=== PATIENT | male | born 1965 | race African-American/Black ===

== ENCOUNTER 2024-08-31 07:50 | Emergency (ER) | payer OTHER, MEDICAID ==
[~2024-08-31] VITALS: Ht 182.9 cm; Wt 95.0 kg
[2024-08-31 07:52] VITALS: O2SAT 97
[2024-08-31 09:25] LABS: BASOPHILS % 0.7 % (0.0-2.0); EOSINOPHILS % 1.1 % (0.0-5.0); HEMOGLOBIN. 15.7 g/dL (14.0-18.0); LYMPHOCYTES % 27.1 % (20.0-50.0); MEAN CORPUSCULAR HEMOGLOBIN 30.5 pg (28.0-32.0); MEAN CORPUSCULAR HGB CONC 32.7 g/dL (31.0-37.0); MEAN CORPUSCULAR VOLUME 93.4 fL (80.0-94.0); MEAN PLATELET VOLUME 7.8 fl (7.4-10.4); MONOCYTES % 9.2 % (2.0-8.0); NEUTROPHILS % 61.9 % (40.0-76.0); PLATELET 258 x1000/uL (130-400); RED BLOOD CELL COUNT 5.14 mill/uL (4.7-6.1); RED CELL DISTRIBUTION WIDTH 15.3 % (11.6-14.6); WHITE BLOOD COUNT 6.4 x1000/uL (4.5-11.0)
[2024-08-31 09:39] LABS: CHLORIDE 109 mEq/L (98-107); POTASSIUM 4.2 mEq/L (3.5-5.1); SODIUM 139 mEq/L (136-145)
[2024-08-31 09:40] LABS: CALCIUM 9.5 mg/dL (8.7-10.4); CARBON DIOXIDE 23 mEq/L (21-32)
[2024-08-31 09:45] LABS: GLUCOSE 102 mg/dL (70-105); UREA NITROGEN BLOOD 9 mg/dL (9-23)
[2024-08-31 09:47] LABS: ALANINE AMINOTRANSFERASE 16 IU/L (10-49); ALBUMIN 4.5 g/dL (3.2-4.8); ASPARTATE AMINOTRANSFERASE 22 IU/L (<34); BILIRUBIN DIRECT 0.2 mg/dL (<=3.0); PROTEIN TOTAL 7.9 g/dL (6.0-8.3)
[2024-08-31 09:48] LABS: PROTHROMBIN TIME 10.7 sec (9.6-11.0)
[2024-08-31 13:14] LABS: CLARITY URINE CLEAR (CLEAR); COLOR URINE YELLOW (YELLOW); GLUCOSE URINE NEGATIVE (NEGATIVE); KETONES URINE NEGATIVE (NEGATIVE); LEUKOCYTE ESTERASE URINE NEGATIVE (NEGATIVE); NITRITE URINE NEGATIVE (NEGATIVE); OCCULT BLOOD URINE NEGATIVE (NEGATIVE); PH URINE 6.5 (4.5-8.0); PROTEIN URINE NEGATIVE (NEGATIVE); SPECIFIC GRAVITY URINE 1.068 (1.005-1.030)
[2024-08-31 13:57] VITALS: BP 158/73; PULSE 59; RESP 16; TEMP 36.9; O2SAT 97
[2024-08-31] MEDS ORDERED: IOHEXOL-350 100 ML BOTTLE ONE (14:23)
== END 2024-08-31 13:58 | disposition home or self-care (01) ==
LOC: ER 08:01
DX: R10.32 Left lower quadrant pain (principal); J45.909 Unspecified asthma, uncomplicated; K40.90 Unilateral inguinal hernia, without obstruction or gangrene, not specified as recurrent
CPT/HCPCS: 80076; 80048; 81003; 83690; 85025; 85610; 36415; 74174; 71275; 74176; 99285; Q9967; Z7610 ×2; A4606

== ENCOUNTER 2025-01-25 09:16 | Emergency (ER) | payer MEDICAID, OTHER ==
[~2025-01-25] VITALS: Ht 182.9 cm; Wt 98.0 kg
[2025-01-25 09:26] VITALS: O2SAT 93
[2025-01-25] MEDS: IBUPROFEN 600MG TABLET PO ONE (10:11)
[2025-01-25] MEDS ORDERED: LIDO-53 TP (10:48)
[2025-01-25] MEDS ORDERED: IBUP-2030 MT (10:48)
[2025-01-25 10:54] VITALS: BP 158/91; PULSE 89; RESP 18; TEMP 37.1; O2SAT 97
== END 2025-01-25 10:55 | disposition home or self-care (01) ==
LOC: ER 09:16
DX: S20.219A Contusion of unspecified front wall of thorax, initial encounter (principal); J45.909 Unspecified asthma, uncomplicated; X58.XXXA Exposure to other specified factors, initial encounter; Y93.67 Activity, basketball; Y92.89 Other specified places as the place of occurrence of the external cause; Y99.8 Other external cause status
CPT/HCPCS: 71101; 99283